=== PATIENT | female | born 1995 | race Caucasian/White ===

== ENCOUNTER 2019-11-22 10:32 | Outpatient (CLI) | payer OTHER, SELFPAY ==
--- NOTE | ~2019-11-22 | XR_ITS ---
[id number] DATE: 11/22/2019 10:49 INDICATION: Left rib pain TECHNIQUE: PA chest. 3 views of the left ribs. COMPARISON: None FINDINGS: Normal heart size. No hilar or mediastinal enlargement. No pulmonary infiltrate or consolid ation, pleural effusion or pulmonary vascular congestion or pneumothorax. No left rib fracture or bone destruction is evident. IMPRESSION: Negative Reviewed, dictated and finalized at Location [facility]. Reviewed, dictated and finalized at location B. IMPRESSION: Negative
== END 2019-11-22 10:33 ==
PROVIDERS: PCP Nurse Practitioner Family; Visit Provider Nurse Practitioner Family
DX: R07.81 Pleurodynia (principal)
CPT/HCPCS: 71101

== ENCOUNTER 2021-03-22 07:04 | Outpatient (CLI) | payer OTHER, SELFPAY ==
[2021-03-27 15:39] LABS: Progesterone 10.2 ng/mL (***)
== END 2021-03-22 07:05 | disposition home or self-care (01) ==
LOC: ANHLAB 07:07
PROVIDERS: PCP Nurse Practitioner Family; Visit Provider Obstetrics & Gynecology
DX: Z30.09 Encounter for other general counseling and advice on contraception (principal)
CPT/HCPCS: 36415; 84144

== ENCOUNTER 2021-05-29 07:18 | Outpatient (CLI) | payer OTHER, SELFPAY ==
[2021-05-29 08:13] LABS: Cholesterol 157 mg/dL (0-200); HDL Direct 37 mg/dL; Triglycerides 109 mg/dL (<150)
[2021-05-29 08:23] LABS: LDL Cholesterol Direct 94 mg/dL
[2021-05-30 16:55] LABS: Glucose 88 mg/dL (65-110)
== END 2021-05-29 07:19 | disposition home or self-care (01) ==
PROVIDERS: PCP Nurse Practitioner Family
DX: R21 Rash and other nonspecific skin eruption (principal)
CPT/HCPCS: 36415; 80061; 82947

== ENCOUNTER 2021-06-03 06:13 | Emergency (ER) | payer OTHER, SELFPAY ==
--- NOTE | ~2021-06-03 | US_ITS ---
EXAMINATION: US venous doppler [facility] DATE: 06/03/2021 08:04 INDICATION: Left lower limb pain and swelling TECHNIQUE: Grayscale ultrasound images without and with compression and Doppler ultrasound images of the left lower extremity veins were obtained. COMPARISON: 11/14/2015 FINDINGS: The visualized portions of left common femoral vein, profunda (deep) femoral vein, femoral vein, popl iteal vein, peroneal veins, posterior tibial veins, gastrocnemius vein and greater saphenous vein out flow are patent. IMPRESSION: 1. No deep venous thrombosis in the left lower limb. Reviewed, dictated and finalized at location A.
[2021-06-03 06:32] VITALS: BP 114/88; PULSE 93; RESP 16; O2SAT 98
--- NOTE | 2021-06-03 07:49 | ED.GENADULT ---
HPI - General Adult General Chief complaint: Extremity Problem,Nontraumatic Stated complaint: Left ankle swelling Time Seen by Provider: 06/03/21 07:03 Source: patient History of Present Illness HPI narrative: Patient is a 26 y/o female complaining of mild left ankle and lower leg swelling today. There is no known alleviating or exacerbating factor. There is no recent injury. She has no chest pain or SOB. Related Data Allergies Allergy/AdvReac Type Severity Reaction Status Date / Time Penicillins Allergy Mild Swelling Verified 06/03/21 06:40 Review of Systems Constitutional: Constitutional: Denies chills, Denies fever(s), Denies headache(s) and Denies weakness Eyes: Eyes: Denies blurry vision ENT: Denies headache(s) and Denies neck pain Cardiovascular: Cardiovascular: Denies chest pain and Denies dyspnea Respiratory: Respiratory: Denies cough and Denies dyspnea Gastrointestinal: Gastrointestinal: Denies abdominal pain, Denies diarrhea, Denies nausea and Denies vomiting Genitourinary: Genitourinary: Denies hematuria and Denies dysuria Musculoskeletal: Musculoskeletal: Denies back pain, Denies neck pain and Reports other (left ankle swelling) Neurologic: Denies headache(s) and Denies weakness PMFSH Social History Social History Gender identity (if verbalized by the patient): Female Exam Const: General: no acute distress and well developed Orientation/consciousness: oriented to person, oriented to place, oriented to time and patient oriented x3 HENMT: Head: normocephalic Ears: external ears normal General nose exam: Normal external nose present Eyes: General: appearance normal, both eyes and all related structures Conjunctivae: conjunctivae normal Neck: Neck: normal visual inspection and full ROM Chest: Chest palpation & inspection: normal inspection of the chest and no tenderness Resp: Effort & Inspection: normal respiratory effort Auscultation: clear to auscultation bilaterally Cardio: Rate: regular rate Rhythm: regular rhythm GI: GI Palp: No abdominal tenderness and Yes Soft to palpation Skin: General skin exam: normal color and turgor normal Neuro: General: oriented to person, oriented to place, oriented to time and patient oriented x3 Cognition (Neuro): normal cognition Extrem: General: normal to inspection, full ROM and no pedal edema Psych: Appearance: grossly normal Mental Status: mental status grossly normal Affect: normal affect Course Vital Signs Vital signs: Vital Signs Pulse Rate 93 09/27/21 06:32 Respiratory Rate 16 06/03/21 06:32 Blood Pressure 114/88 06/03/21 06:32 Pulse Oximetry 98 06/03/21 06:32 Pulse Rate 89 06/03/21 09:32 Respiratory Rate 14 06/03/21 09:32 Blood Pressure 110/82 06/03/21 09:32 Pulse Oximetry 100 06/03/21 09:32 Medical Decision Making Vital Signs Vital Signs: Vital Signs Pulse Rate 93 06/03/21 06:32 Respiratory Rate 16 06/03/21 06:32 Blood Pressure 114/88 06/03/21 06:32 Pulse Oximetry 98 06/03/21 06:32 Pulse Rate 89 06/03/21 09:32 Respiratory Rate 14 06/03/21 09:32 Blood Pressure 110/82 06/03/21 09:32 Pulse Oximetry 100 06/03/21 09:32 Lab Data Result diagrams: 06/03/21 08:29 06/03/21 08:29 Labs: Lab Results 06/03/21 06/03/21 06/03/21 Range/Units 08:29 08:29 08:29 WBC 9.1 (4.5-10.0) K/mm3 RBC 4.51 (4.2-5.4) M/mm3 Hgb 14.6 (12.0-15.0) g/dL Hct 42.4 (37.0-47.0) % MCV 94.0 (80-100) fl MCH 32.4 (26-34) pg MCHC 34.4 (32-36) g/dl RDW 12.0 (11.5-14.5) % Plt Count 314 (150-375) k/mm3 MPV 8.6 (7.4-10.4) fl Immature Gran % (Auto) 1.0 H (0-0.5) % Neut % (Auto) 46.0 (45.5-73.1) % Lymph % (Auto) 45.0 H (18.3-44.2) % [place] % (Auto) 5.7 (2.6-8.5) % Eos % (Auto) 1.5 (0-4.4) % Baso % (Auto) 0.8 (0.2-1.2) % Lymph # (Auto) 4.07 H (0.9-3.2) K/mm3 [place] # (Auto) 0.5 (0
[2021-06-03 07:51] VITALS: BP 123/92; PULSE 83; RESP 12; O2SAT 100
[2021-06-03 08:41] LABS: Basophils Absolute Auto 0.1 K/mm3 (0.0-0.1); Basophils Percent Auto 0.8 % (0.2-1.2); Eosinophils Absolute Auto 0.1 K/mm3 (0-0.3); Eosinophils Percent Auto 1.5 % (0-4.4); Hematocrit 42.4 % (37.0-47.0); Hemoglobin 14.6 g/dL (12.0-15.0); Immature Granulocyte Absolute 0.09 K/mm3 (0.00-0.031); Lymphocytes Absolute Auto 4.07 K/mm3 (0.9-3.2); Mean Corpuscular HGB Conc 34.4 g/dl (32-36); Mean Corpuscular Hemoglobin 32.4 pg (26-34); Mean Platelet Volume 8.6 fl (7.4-10.4); Monocytes Absolute Auto 0.5 K/mm3 (0.1-0.6); Monocytes Percent Auto 5.7 % (2.6-8.5); Neutrophils Absolute Auto 4.2 K/mm3 (1.3-6.7); Platelet Count Result 314 k/mm3 (150-375); Red Blood Count 4.51 M/mm3 (4.2-5.4); White Blood Count 9.1 K/mm3 (4.5-10.0)
[2021-06-03 08:50] LABS: Alanine Aminotransferase 21 U/L (4-35); Albumin Level 4.6 g/dL (3.5-5.1); Alkaline Phosphatase 44 U/L (38-126); Anion Gap 7 mmol/L (8-16); Aspartate Amino Transferase 31 U/L (14-36); Bilirubin,Total 0.7 mg/dL (0.2-1.3); Blood Urea Nitrogen 13 mg/dL (7-17); Calcium 9.7 mg/dL (8.4-10.2); Carbon Dioxide 27 mmol/L (22-30); Chloride 104 mmol/L (98-107); Estimated CRCL calculation 122 ml/min; Estimated Glomerular Filt Rate > 60; Glucose 94 mg/dL (65-110); Sodium 138 mmol/L (137-145)
[2021-06-03 08:59] LABS: NT Pro B Type Natriuretic Pept 22 pg/mL (5-100)
[2021-06-03 09:06] LABS: Add Urine Microscopic? YES; Appearance Urine Clear (Clear); Bacteria Urine Trace /hpf; Bilirubin Urine Negative (Negative); Blood Urine Negative (Negative); Color Urine Straw (Yellow); Glucose Urine UA Negative (Negative); Ketones Urine Negative (Negative); Leukocyte Esterase Ur Negative LEU/UL (Negative); Nitrate Urine Negative (Negative); Protein Urine Negative (Negative); RBC Urine 0-2 /hpf (0-2); Specific Grav Ur 1.009 (1.001-1.035); Squamous Epithelial Cell Urine Occasional /hpf (Few); Urobilinogen Urine Negative mg/dL (<2.0); WBC Urine 0-3 /hpf
[2021-06-03 09:32] VITALS: BP 110/82; PULSE 89; RESP 14; O2SAT 100
== END 2021-06-03 09:37 | disposition home or self-care (01) ==
PROVIDERS: Emergency Provider Emergency Medicine; PCP Nurse Practitioner Family
DX: M25.472 Effusion, left ankle (principal)
CPT/HCPCS: 36415; 80053; 81001; 81025; 83880; 85025; 93971; 99284

== ENCOUNTER 2022-04-28 16:24 | Emergency (ER) | payer OTHER, SELFPAY ==
--- NOTE | ~2022-04-28 | XR_ITS ---
EXAMINATION: XR chest 2V Exam Date/Time: 04/28/2022 17:56 CDT HISTORY: chest pain while smoking Comparison: None available. RESULT: Lines, tubes, and devices: None. Lungs and pleura: Diffuse reticulonodular opacities. Cardiomediastinal silhouette: Stable. Other: No acute osseous or upper abdominal finding. IMPRESSION: Pulmonary opacities may represent bronchiolitis, as can be seen with atypical infection, asthma, aspi ration, and small airways disease.. Reviewed, dictated and finalized at location K. IMPRESSION: Pulmonary opacities may represent bronchiolitis, as can be seen with atypical i nfection, asthma, aspiration, and small airways disease..
[2022-04-28 16:27] VITALS: BP 148/91; PULSE 105; RESP 18; TEMP 36.2; O2SAT 100
--- NOTE | 2022-04-28 16:29 | ECG_ITS ---
Measurements Intervals [facility] Rate: 96 P: 32 GA: 149 QRS: 50 QRSD: 118 T: 5 QT: 318 QTc: 403 Interpretive Statements SINUS RHYTHM MODERATE INTRAVENTRICULAR CONDUCTION DELAY NONSPECIFIC T-WAVE ABNORMALITY LOW-VOLTAGE QRS IN PRECORDIAL LEADS ABNORMAL ECG NO PREVIOUS ECG AVAILABLE FOR COMPARISON Electronically Signed On 04-28-2022 16:40:09 CDT by Rogers Gold M.D.
[2022-04-28 16:46] LABS: Basophils Absolute Auto 0.1 K/mm3 (0.0-0.1); Basophils Percent Auto 0.8 % (0.2-1.2); Eosinophils Absolute Auto 0.2 K/mm3 (0-0.3); Eosinophils Percent Auto 1.5 % (0-4.4); Immature Granulocyte Absolute 0.15 K/mm3 (0.00-0.031); Immature Granulocyte Percent A 1.1 % (0-0.5); Lymphocytes Absolute Auto 3.16 K/mm3 (0.9-3.2); Lymphocytes Percent Auto 24.2 % (18.3-44.2); Mean Corpuscular HGB Conc 33.3 g/dl (32-36); Mean Corpuscular Hemoglobin 32.5 pg (26-34); Mean Corpuscular Volume 97.6 fl (80-100); Mean Platelet Volume 8.6 fl (7.4-10.4); Monocytes Absolute Auto 0.7 K/mm3 (0.1-0.6); Monocytes Percent Auto 5.1 % (2.6-8.5); Neutrophils Absolute Auto 8.8 K/mm3 (1.3-6.7); Neutrophils Percent Auto 67.3 % (45.5-73.1); Platelet Count Result 311 k/mm3 (150-375); Red Blood Count 4.61 M/mm3 (4.2-5.4); Red Cell Distribution Width 12.9 % (11.5-14.5); White Blood Count 13.1 K/mm3 (4.5-10.0)
[2022-04-28 16:56] LABS: Alanine Aminotransferase 22 U/L (6-35); Albumin Level 4.3 g/dL (3.5-5.1); Alkaline Phosphatase 44 U/L (38-126); Anion Gap 10 mmol/L (8-16); Aspartate Amino Transferase 30 U/L (14-36); Bilirubin,Total 0.4 mg/dL (0.2-1.3); Blood Urea Nitrogen 15 mg/dL (7-17); Carbon Dioxide 22 mmol/L (22-30); Chloride 103 mmol/L (98-107); Estimated CRCL calculation 107 ml/min; Estimated Glomerular Filt Rate > 60; Glucose 98 mg/dL (65-110); Lipase 99 U/L (23-300); Partial Thromboplastin Time 29.5 SECONDS (22.3-36.8); Sodium 135 mmol/L (137-145)
[2022-04-28 17:07] LABS: Troponin I < 0.012 ng/mL (0.000-0.034)
[2022-04-28 19:40] VITALS: BP 118/81; PULSE 87; RESP 19; O2SAT 100
[2022-04-28 19:44] VITALS: PULSE 83
--- NOTE | 2022-04-28 19:54 | PC.NURSE ---
Pt reports no chest pain symptoms at this time. Pt rates current chest pain 0/10. No aspirin administered prior to this RN arrival.
[2022-04-28 20:01] VITALS: BP 128/73; PULSE 82; RESP 21; O2SAT 98
[2022-04-28 20:19] LABS: Troponin I < 0.012 ng/mL (0.000-0.034)
--- NOTE | 2022-04-28 20:50 | ED.GENADULT ---
HPI - General Adult General Chief complaint: Chest Pain Stated complaint: chest pain Time Seen by Provider: 04/28/22 19:47 History of Present Illness HPI narrative: Patient is a 27-year-old female who presents ER with chest pain. Is been occurring intermittently over the last week. But more frequently over the last couple days. Will grab her for a minute. No fevers or chills or sweats. No runny nose or sore throat or productive cough. No exertional chest pain. No history of heart disease. Has found no alleviating factors. Related Data Home Medications Medication Instructions Recorded Confirmed aripiprazole 5 mg tablet mg 04/28/22 fluoxetine 20 mg capsule mg 04/28/22 Allergies Allergy/AdvReac Type Severity Reaction Status Date / Time Penicillins Allergy Mild Swelling Verified 04/28/22 19:44 Review of Systems Review of Systems: All systems reviewed & are unremarkable except as noted in HPI and below Constitutional: Constitutional: Denies chills, Denies fatigue and Denies fever(s) ENT: Denies nasal congestion and Denies sore throat Cardiovascular: Cardiovascular: Reports chest pain, Denies rapid heart rate and Denies radiating jaw, neck or arm pain Respiratory: Respiratory: Denies chest congestion, Denies cough and Denies dyspnea Gastrointestinal: Gastrointestinal: Denies abdominal pain, Denies nausea and Denies vomiting Genitourinary: Genitourinary: Denies dysuria and Denies flank pain PMFSH Past Medical History Medical History (Updated 04/28/22 @ 21:38 by Art Arriola MD) Depression Migraine Surgical History Surgical History (Updated 04/28/22 @ 21:38 by Art Arriola MD) No pertinent past surgical history Social History Social History (Updated 04/28/22 @ 21:38 by Art Arriola MD) Smoking status: Light tobacco smoker Gender identity (if verbalized by the patient): Female Exam Narrative: GENERAL: Well-appearing, well-nourished, and in no acute distress. HEAD: Normocephalic, atraumatic. EYES: PERRL and EOMI. CHEST: Clear to auscultation. No respiratory distress. HEART: Regular rate and rhythm. Normal peripheral pulses. ABDOMEN: Soft, nontender, nondistended. EXTREMITIES: Normal range of motion. No edema. SKIN: Warm, dry, no rash. NEURO: Alert and oriented x3. PSYCH: Normal mood and affect. Course Course Emergency Course: Patient resting comfortably. Discharge home. Discussed treatment plan and patient verbalized understanding. Vital Signs Vital signs: Vital Signs Temperature 97.1 F L 04/28/22 16:27 Pulse Rate 105 H 04/28/22 16:27 Respiratory Rate 18 04/28/22 16:27 Blood Pressure 148/91 H 04/28/22 16:27 Pulse Oximetry 100 04/28/22 16:27 Oxygen Delivery Room Air 04/28/22 16:27 Temperature 97.1 F L 04/28/22 16:27 Pulse Rate 80 04/28/22 21:09 Respiratory Rate 20 04/28/22 21:09 Blood Pressure 128/73 04/28/22 21:09 Pulse Oximetry 98 04/28/22 21:09 Oxygen Delivery Room Air 04/28/22 16:27 Medical Decision Making Vital Signs Vital Signs: Vital Signs Temperature 97.1 F L 04/28/22 16:27 Pulse Rate 105 H 04/28/22 16:27 Respiratory Rate 18 04/28/22 16:27 Blood Pressure 148/91 H 04/28/22 16:27 Pulse Oximetry 100 04/28/22 16:27 Oxygen Delivery Room Air 04/28/22 16:27 Temperature 97.1 F L 04/28/22 16:27 Pulse Rate 80 04/28/22 21:09 Respiratory Rate 20 04/28/22 21:09 Blood Pressure 128/73 04/28/22 21:09 Pulse Oximetry 98 04/28/22 21:09 Oxygen Delivery Room Air 04/28/22 16:27 Lab Data Result diagrams: 04/28/22 16:38 04/28/22 16:38 Labs: Lab Results 04/28/22 04/28/22 04/28/22 Range/Units 16:38 16:38 16:38 WBC 13.1 H (4.5-10.0) K/mm3 RBC 4.61 (4.2-5.4) M/mm3 Hgb 15.0 (12.0-15.0) g/dL Hct 45.0 (37.0-47.0) % MCV 97.6 (80-100) fl MCH 32.5 (26-34) pg MCHC 33.3 (32-36) g/dl RDW 12.9 (11.5-14.5) %
[2022-04-28 21:09] VITALS: BP 128/73; PULSE 80; RESP 20; O2SAT 98
[2022-04-28 21:39] VITALS: BP 140/68; PULSE 88; RESP 16; O2SAT 99
[2022-04-28 21:48] LABS: SARS-CoV-2 RNA PCR Negative
== END 2022-04-28 21:42 | disposition home or self-care (01) ==
PROVIDERS: Emergency Medicine; Emergency Provider Emergency Medicine; PCP Nurse Practitioner Family
DX: R07.9 Chest pain, unspecified (principal); Z20.822 Contact with and (suspected) exposure to COVID-19; F32.9 Major depressive disorder, single episode, unspecified
CPT/HCPCS: 36415; 71046; 80053; 83690; 84484; 85025; 85610; 85730; 93005; 99284; C9803; U0003; U0005

== ENCOUNTER 2023-05-18 21:36 | Emergency (ER) | payer OTHER, SELFPAY ==
--- NOTE | 2023-05-18 21:46 | PC.NURSE ---
pt brought to ED by PD for voluntary mental health evaluation. after checking pt in pt states she is fine, does not have any SI/HI thoughts and is not wanting to be checked in. pt reports she made a comment to her brother that got taken out of context. pt ambulated out of ED with steady gait.
== END 2023-05-18 21:46 | disposition left against medical advice (07) ==
LOC: ANHED 22:00
PROVIDERS: PCP Nurse Practitioner Family
DX: Z53.21 Procedure and treatment not carried out due to patient leaving prior to being seen by health care provider (principal)
CPT/HCPCS: 99199

== ENCOUNTER 2023-07-21 09:40 | Emergency (ER) | payer SELFPAY ==
--- NOTE | 2023-07-21 09:41 | ED.URI ---
HPI - URI/Sore Throat General Chief Complaint: Ear Stated Complaint: Right Ear Irritation Time Seen by Provider: 07/21/23 09:50 Source: patient, RN notes reviewed and old records reviewed Mode of arrival: ambulatory Limitations: no limitations History of Present Illness HPI Narrative: 28-year-old female presents to the [facility] with complaints of right ear pain for 3-4 days. Has taken Tylenol for pain. Denies any other symptoms. Denies fevers. Denies using Q-tips, ear buds Denies any drainage Onset (ago): day(s) (3-4) Treatments prior to arrival: acetaminophen Related Data Home Medications Medication Instructions Recorded Confirmed norethindrone 1 mg-ethinyl 1 tablet PO DAILY 07/21/23 07/21/23 estradiol 10 mcg (24)-iron 10 mcg(2) tablet (Lo Loestrin Fe) Allergies Allergy/AdvReac Type Severity Reaction Status Date / Time Penicillins Allergy Mild Swelling Verified 07/21/23 09:41 Review of Systems Review of Systems: All systems reviewed & are unremarkable except as noted in HPI and below Constitutional: Constitutional: Reports no additional constitutional complaints Eyes: Eyes: Reports no additional eye complaints ENT: Reports as per HPI and Reports otalgia Cardiovascular: Cardiovascular: Reports no additional cardiovascular complaints, Denies chest pain and Denies dyspnea Respiratory: Respiratory: Reports no additional respiratory complaints, Denies chest congestion, Denies cough and Denies dyspnea Gastrointestinal: Gastrointestinal: Reports no additional gastrointestinal complaints, Denies abdominal pain, Denies nausea and Denies vomiting Musculoskeletal: Musculoskeletal: Reports no additional musculoskeletal complaints Integumentary/Breasts: Skin/Breast: Reports system reviewed and no additional complaints, except as docu Neurologic: Reports system reviewed and no additional complaints, except as documented Psychiatric: Psychiatric: Reports no additional psychiatric complaints Allergic/Immunologic: Allergic/Immunologic: Reports no additional allergic/immunologic complaints PMFSH Past Medical History Medical History Depression Migraine Surgical History Surgical History No pertinent past surgical history Social History Social History Smoking status: Light tobacco smoker Gender identity (if verbalized by the patient): Female Comments At the time of my signature, I reviewed and agree with the nursing past medical, surgical, social, and family history. There is no relevant family history pertinent to the patient complaint. Exam Const: General: cooperative, healthy appearing, comfortable, no acute distress, well developed, alert and well nourished Nutritional Appearance: well nourished Orientation/consciousness: patient oriented x3 Limitations: no limitations HENMT: Head: normal to inspection Ears: hearing grossly normal bilaterally, external ears normal, TM's normal bilaterally, mastoids normal, no periauricular adenopathy and Abnormal EAC present erythema on the right and EAC tenderness on the right; no otic discharge Face/Nose/Sinus: Normal external nose present, Normal nares present, Normal nasal mucous membranes and turbinates present, normal facial exam and face symmetric Face and sinus: normal facial exam and face symmetric Mouth: Yes Normal oral and palatal mucosa present, Yes lip normal and Yes moist mucous membranes Throat: posterior oropharynx normal, tonsils normal and uvula midline Eyes: General: appearance normal, both eyes and all related structures Alignment and Position: alignment normal Periorbital: periorbital findings normal Pupils: Equal, round and reactive pupils present EOM: EOMs intact bilaterally Neck: Neck: normal visual inspection, full ROM, no lymphadenopathy and no meningeal signs Chest: Tash
[2023-07-21 09:53] VITALS: BP 127/90; PULSE 95; RESP 16; TEMP 36.8; O2SAT 98
== END 2023-07-21 10:06 | disposition home or self-care (01) ==
PROVIDERS: Emergency Provider Nurse Practitioner; PCP Nurse Practitioner Family
DX: H60.391 Other infective otitis externa, right ear (principal); F17.290 Nicotine dependence, other tobacco product, uncomplicated
CPT/HCPCS: 99213; G0463

== ENCOUNTER 2024-04-09 13:04 | Emergency (ER) | payer OTHER, SELFPAY ==
--- NOTE | ~2024-04-09 | CT_ITS ---
EXAMINATION: CT abdomen pelvis w con DATE: 04/09/2024 15:35 INDICATION: Periumbilical pain radiating to lower abdomen TECHNIQUE: Computed tomography (CT) of the abdomen and pelvis was performed with 100 CC Omnipaque 350 intravenous contrast. Automated exposure control and iterative reconstruction technique were employe d. Exam dose: 798.61 mGy-cm total exam DLP. COMPARISON: 07/04/2019 CT abdomen pelvis FINDINGS: The lung bases are clear. Heart size is within normal limits. No pericardial or pleural effusion. The gallbladder appears unremarkable. No bile duct or pancreatic duct dilatation. Hepatic steatosis. No hepatic, splenic, pancreatic, adrenal or renal space occupying mass lesion is d etected. No urinary tract calculus or hydroureteronephrosis. Normal caliber of the abdominal aorta. No intrape ritoneal or retroperitoneal or pelvic mass lesion or adenopathy or ascites. The uterus, adnexal areas and urinary bladder are unremarkable. Normal appendix. Occasional colonic diverticula; no CT evidence of diverticulitis. No bowel obstruction, bowel wall th ickening, pneumatosis or intraperitoneal free air. Fat-containing umbilical hernia. IMPRESSION: Mild colonic diverticulosis; no CT evidence of diverticulitis Normal appendix Reviewed, dictated and finalized at Location [facility]. Reviewed, dictated and finalized at location J.
[2024-04-09 13:08] VITALS: BP 148/95; PULSE 101; RESP 16; TEMP 36.2; O2SAT 99
[2024-04-09 13:20] LABS: Basophils Absolute Auto 0.1 K/mm3 (0.0-0.1); Basophils Percent Auto 0.7 % (0.2-1.2); Eosinophils Absolute Auto 0.2 K/mm3 (0-0.3); Eosinophils Percent Auto 1.2 % (0-4.4); Hematocrit 48.2 % (37.0-47.0); Hemoglobin 16.6 g/dL (12.0-15.0); Immature Granulocyte Absolute 0.12 K/mm3 (0.00-0.031); Immature Granulocyte Percent A 0.8 % (0-0.5); Lymphocytes Absolute Auto 3.77 K/mm3 (0.9-3.2); Lymphocytes Percent Auto 25.2 % (18.3-44.2); Mean Corpuscular HGB Conc 34.4 g/dl (32-36); Mean Corpuscular Volume 92.9 fl (80-100); Monocytes Absolute Auto 0.7 K/mm3 (0.1-0.6); Monocytes Percent Auto 4.5 % (2.6-8.5); Neutrophils Absolute Auto 10.1 K/mm3 (1.3-6.7); Neutrophils Percent Auto 67.6 % (45.5-73.1); Platelet Count Result 363 k/mm3 (150-375); Red Blood Count 5.19 M/mm3 (4.2-5.4); Red Cell Distribution Width 12.6 % (11.5-14.5)
[2024-04-09 13:30] LABS: Alanine Aminotransferase 58 U/L (6-35); Albumin Level 4.6 g/dL (3.5-5.1); Alkaline Phosphatase 44 U/L (38-126); Anion Gap 11 mmol/L (4-12); Aspartate Amino Transferase 37 U/L (14-36); Bilirubin,Total 0.7 mg/dL (0.2-1.3); Blood Urea Nitrogen 9 mg/dL (7-17); Calcium 9.8 mg/dL (8.4-10.2); Carbon Dioxide 19 mmol/L (22-30); Chloride 106 mmol/L (98-107); Estimated CRCL calculation 127 ml/min; Estimated Glomerular Filt Rate > 60; Glucose 104 mg/dL (65-110); Lipase 64 U/L (23-300); Potassium 4.3 mmol/L (3.4-5.0); Sodium 136 mmol/L (137-145)
[2024-04-09 14:11] LABS: BEDSIDEPREGUCG Negative
[2024-04-09 14:21] LABS: Add Urine Microscopic? YES; Appearance Urine Cloudy (Clear); Bacteria Urine 2+ /hpf; Bilirubin Urine Negative (Negative); Blood Urine Negative (Negative); Color Urine Yellow (Yellow); Glucose Urine UA Negative (Negative); Ketones Urine Negative (Negative); Leukocyte Esterase Ur 1+ LEU/UL (Negative); Need Manual Microscopic Reviewed; Nitrate Urine Negative (Negative); Protein Urine Negative (Negative); RBC Urine 0-2 /hpf (0-2); Specific Grav Ur 1.022 (1.001-1.035); Squamous Epithelial Cell Urine Few /hpf (Few); WBC Urine 21-50 /hpf (0-3); pH Urine 5.5 (5.0-9.0)
--- NOTE | 2024-04-09 14:49 | ED.GENADULT ---
HPI - General Adult General Chief complaint: Abdominal Pain Stated complaint: abd pain Time Seen by Provider: 04/09/24 13:58 History of Present Illness HPI narrative: Isabela Palma is a 29 y/o female who presents with reports of waking up with mid abdominal pain at 0900 today - she took pepto and went back to bed. She woke back up at 1200 and feels worse with increased mid to lower abdominal pain. Denies N/V Reports last BM was two days ago which she states is normal for her NO recent fevers LMP last week PMHx of Diverticulitis - no previous abdominal surgeries Related Data Home Medications Medication Instructions Recorded Confirmed norethindrone 1 mg-ethinyl 1 tablet PO DAILY 07/21/23 07/21/23 estradiol 10 mcg (24)-iron 10 mcg(2) tablet (Lo Loestrin Fe) Allergies Allergy/AdvReac Type Severity Reaction Status Date / Time Penicillins Allergy Mild Swelling Verified 07/21/23 09:41 Review of Systems Review of Systems: All systems reviewed & are unremarkable except as noted in HPI and below PMFSH Past Medical History Medical History Depression Migraine Surgical History Surgical History No pertinent past surgical history Social History Social History Smoking status: Light tobacco smoker Gender identity (if verbalized by the patient): Female Exam Narrative: GENERAL: well-nourished, and in no acute distress. HEAD: Normocephalic, atraumatic. EYES: PERRLA and EOMI. ENT: Nares clear, no rhinorrhea or epistaxis. Mucous membranes moist. Oropharynx without tonsillar hypertrophy exudate or other lesions. NECK: Supple. No adenopathy or masses. No carotid bruits or JVD CHEST: Clear to auscultation. No respiratory distress. No wheezes rales or rhonchi HEART: Regular rate and rhythm. No murmur heard. Normal peripheral pulses. ABDOMEN: Soft nondistended, normal active bowel sounds. + abdominal tenderness to the left lower to the mid abdomen EXTREMITIES: Normal range of motion. No edema. SKIN: Warm, dry, no rash. NEURO: No focal deficits. Alert and oriented x3. PSYCH: Normal mood and affect. Course Vital Signs Vital signs: Vital Signs Temperature 36.2 C L 04/09/24 13:08 Pulse Rate 101 H 04/09/24 13:08 Respiratory Rate 16 04/09/24 13:08 Blood Pressure 148/95 H 04/09/24 13:08 Pulse Oximetry 99 04/09/24 13:08 Temperature 36.2 C L 04/09/24 13:08 Pulse Rate 101 H 04/09/24 13:08 Respiratory Rate 16 04/09/24 13:08 Blood Pressure 148/95 H 04/09/24 13:08 Pulse Oximetry 99 04/09/24 13:08 Medical Decision Making MDM Narrative Medical decision making narrative: 29 y/o with mid to left lower quadrant abdominal pain that started at 0900 today and has become worse no N/V/D No fever chills Plan to check labs/ CT abdomen pelvis CBC- elevated WBC 15, hgb 16.6, hct 48.2 CMP- NA 136, Bicarb 19, Creat 0.60, AST 37, ALT 58 Lipase - 64 UA - cloudy, +1 leuks, wbc 21-50, bacteria 2+ CT - Mild colonic diverticulosis; no CT evidence of diverticulitis Normal appendix Patient re-evaluated at 1615 and reports feeling much better abdominal pain is essentially gone - updated on plan to start treatment for UTI Close follow up with PCP Strict return precautions provided Medical Records Medical records reviewed: Yes I reviewed the external patient's medical records. Vital Signs Vital Signs: Vital Signs Temperature 36.2 C L 04/09/24 13:08 Pulse Rate 101 H 04/09/24 13:08 Respiratory Rate 16 04/09/24 13:08 Blood Pressure 148/95 H 04/09/24 13:08 Pulse Oximetry 99 04/09/24 13:08 Temperature 36.2 C L 04/09/24 13:08 Pulse Rate 101 H 04/09/24 13:08 Respiratory Rate 16 04/09/24 13:08 Blood Pressure 148/95 H 04/09/24 13:08 Pulse Oximetry 99 04/09/24 13:08 Vitals reviewed by
[2024-04-09 15:00] VITALS: BP 145/75; PULSE 75; RESP 17; TEMP 36.7; O2SAT 100
[2024-04-09] MEDS: KETOROLAC 30 MG/ML VIAL (*BKC) IV PUSH (15:05)
[2024-04-09] MEDS: FAMOTIDINE 20 MG/2 ML VIAL IV PUSH (15:06)
[2024-04-09] MEDS: SODIUM CHLORIDE 0.9% IV 1,000 ML 999 ML IV CONT (15:06)
[2024-04-09] MEDS: ONDANSETRON INJ 4 MG/2 ML VIAL IV PUSH (15:06)
[2024-04-09] MEDS: NITROFURANTOIN MONOHYD MACROCR 100 MG CAP PO (16:53)
[2024-04-09 17:00] VITALS: BP 137/62; PULSE 87; RESP 17; TEMP 37.2; O2SAT 100
== END 2024-04-09 17:02 | disposition home or self-care (01) ==
PROVIDERS: Emergency Medicine; Emergency Provider Nurse Practitioner Family
DX: N30.00 Acute cystitis without hematuria (principal); F17.200 Nicotine dependence, unspecified, uncomplicated
CPT/HCPCS: 36415; 74177; 80053; 81001; 81025; 83690; 85025; 87086; 87088; 96361; 96374; 96375; 99284; A9270; J1885; J2405; J7030; Q9967

== ENCOUNTER 2024-06-27 11:52 | Outpatient (CLI) | payer OTHER, SELFPAY ==
--- NOTE | ~2024-06-27 | XR_ITS ---
AP and lateral views of the left tibia/fibula Clinical History: Skin discoloration Findings: No acute fracture or dislocation is seen. Osseous alignment is anatomic. Joint spaces are p reserved without significant erosive or degenerative change. Soft tissues are unremarkable. Impression: Unremarkable left tib-fib radiographs. Reviewed, dictated and finalized at location . Impression: Unremarkable left tib-fib radiographs.
--- NOTE | ~2024-06-27 | XR_ITS ---
Left ankle Technique: AP and lateral views were obtained. Clinical History: Skin discoloration Findings: No acute fracture or dislocation is seen. Osseous alignment is anatomic. Ankle mortise and other visualized joint spaces are preserved. Soft tissues are otherwise unremarkable. Impression: Unremarkable left ankle. Reviewed, dictated and finalized at location . Impression: Unremarkable left ankle.
== END 2024-06-27 11:53 | disposition home or self-care (01) ==
PROVIDERS: Visit Provider Nurse Practitioner Family
DX: R23.8 Other skin changes (principal)
CPT/HCPCS: 73590; 73600

== ENCOUNTER 2024-08-24 15:59 | Outpatient (CLI) | payer OTHER, SELFPAY ==
--- NOTE | ~2024-08-24 | US_ITS ---
EXAMINATION: US soft tissue LE LT DATE: 08/24/2024 16:52 INDICATION: Left lower limb localized swelling. TECHNIQUE: Multiple grayscale and Doppler ultrasound images of the left lower limb were obtained. COMPARISON: None FINDINGS: In the left thigh, the greater saphenous vein measures 8 mm in diameter. No thrombus. IMPRESSION: 1. No abnormal mass in the patient's area of concern in left thigh. Reviewed, dictated and finalized at location A. REMOVER
== END 2024-08-24 16:00 | disposition home or self-care (01) ==
PROVIDERS: PCP Nurse Practitioner Family; Visit Provider Nurse Practitioner Family
DX: R22.42 Localized swelling, mass and lump, left lower limb (principal)
CPT/HCPCS: 76882

== ENCOUNTER 2024-09-09 14:02 | Outpatient (CLI) | payer OTHER, SELFPAY ==
--- NOTE | ~2024-09-09 | US_ITS ---
EXAMINATION: US arterial ankle brachial ind DATE: 09/09/2024 14:46 INDICATION: Discoloration of skin. TECHNIQUE: Segmental pressures and plethysmographic and Doppler waveforms of the brachial and lower e xtremity arteries were obtained. COMPARISON: None. FINDINGS: Right and left brachial artery pressures of 133 mm Hg and 140 mm Hg, respectively, are concordant (no rmal difference <= 30 mmHg). The right ankle-brachial index (GRACIELA) is 1.18 (normal >= 0.9-1.0). The right great toe-brachial index (TBI) is 0.42 (normal >= 0.65). Arterial Doppler demonstrate brisk systolic upstrokes at both right p osterior tibial and dorsalis pedis arteries. The left GRACIELA is 0.94. The left TBI is 0.74. Arterial Doppler waveforms demonstrate brisk systolic ups trokes at both left posterior tibial and dorsalis pedis arteries. IMPRESSION: 1. Mild arterial occlusive disease to the bilateral lower limbs with mildly decreased right TBI and m ildly decreased left GRACIELA. Reviewed, dictated and finalized at location B. 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 Mild arterial occlusive disease to the bilateral lower limbs with mildly dec reased right TBI and mildly decreased left GRACIELA.
== END 2024-09-09 14:03 | disposition home or self-care (01) ==
PROVIDERS: PCP Nurse Practitioner Family; Visit Provider Nurse Practitioner Family
DX: I77.1 Stricture of artery (principal); R23.8 Other skin changes
CPT/HCPCS: 93922

== ENCOUNTER 2025-01-09 13:21 | Emergency (ER) | payer OTHER, SELFPAY ==
--- NOTE | ~2025-01-09 | XR_ITS ---
XR foot RT min 3V Ordering provider: Marilyn Cleveland APRN History: . pain . Comparison: None. FINDINGS: BONES: No acute fracture or dislocation. JOINT SPACES: Normal. No tarsal coalition. SOFT TISSUES: Normal. Calcaneal spur. IMPRESSION: No acute osseous abnormality of the right foot. Reviewed, dictated and finalized at location A.
[2025-01-09 13:22] VITALS: BP 147/76; PULSE 100; RESP 20; TEMP 37; O2SAT 98
--- NOTE | 2025-01-09 13:38 | ED.EXTPRO ---
HPI - Extremity Problem General Chief complaint: Extremity Problem,Nontraumatic Stated complaint: Right Foot Pain Source: patient Mode of arrival: ambulatory Limitations: no limitations History of Present Illness HPI Narrative: Patient is a 29 year old female that presents to the clinic with complaints of right foot pain that has been persistent for 2 weeks. She states that she fell going up the stairs. She has been taking Tyelnol for pain, with minimal relief. Denies any numbness, tingling, or radiation of pain. Related Data Home Medications ?Medication ?Instructions ?Recorded ?Confirmed ?Last Taken ?Type norethindrone 1 mg-ethinyl 1 tablet PO DAILY 07/21/23 07/21/23 Unknown History estradiol 10 mcg (24)-iron 10 mcg(2) tablet (Lo Loestrin Fe) aripiprazole 10 mg tablet mg 01/09/25 Unknown History fluoxetine 20 mg tablet mg 01/09/25 Unknown History Allergies Allergy/AdvReac Type Severity Reaction Status Date / Time Penicillins Allergy Mild Swelling Verified 01/09/25 13:27 Review of Systems Review of Systems: CONSTITUTIONAL: Denies body aches, fever, chillsEYES: Denies visual changes ENT: Denies rhinorrhea, congestion CARDIOVASCULAR: Denies chest pain, palpitations, or edema. RESPIRATORY: Denies cough or dyspnea. SKIN: Denies rash, itching, or wounds. MUSCULOSKELETAL: Reports pain to ball of the right foot. NEUROLOGIC: Denies headache, numbness, tingling, or weakness. All systems reviewed & are unremarkable except as noted in HPI and below PMFSH Past Medical History Medical History Migraine Depression Surgical History Surgical History No pertinent past surgical history Social History Social History Smoking status: Light tobacco smoker Gender identity (if verbalized by the patient): Female Comments At time of signature, I have reviewed and agree with nursing past medical, surgical, social and family history unless otherwise noted. Please see nursing chart for further information. There is no relevant family history pertinent to the presenting complaint. Exam Narrative: GENERAL: Well-appearing, well-nourished, and in no acute distress. HEAD: Normocephalic, atraumatic. NECK: Supple. CHEST: Speaks in full sentences. No respiratory distress. HEART: Regular rate and rhythm. Normal and equal peripheral pulses. EXTREMITIES: Right foot has normal strength and sensation, decreased range of motion with flexion/extension and endorses pain with movement. Edema noted. No ecchymosis, Point tenderness to plantar aspect of right foot . No open wounds, skin tenting, or obvious deformity; alignment normal, pulse palpable and equal bilaterally, skin warm, dry, pink. Capillary refill less than 3 seconds. Distal sensation intact. SKIN: Warm, dry, no rash. NEURO: Alert and oriented x3. PSYCH: Normal mood and affect Course Course Level of Care: Express Care Visit Vital Signs Vital signs: Vital Signs Temperature 98.6 F 01/09/25 13:22 Pulse Rate 100 01/09/25 13:22 Respiratory Rate 20 01/09/25 13:22 Blood Pressure 147/76 H 01/09/25 13:22 Pulse Oximetry 98 01/09/25 13:22 Oxygen Delivery Room Air 01/09/25 13:22 Temperature 98.6 F 01/09/25 13:22 Pulse Rate 100 01/09/25 13:22 Respiratory Rate 20 01/09/25 13:22 Blood Pressure 147/76 H 01/09/25 13:22 Pulse Oximetry 98 01/09/25 13:22 Oxygen Delivery Room Air 01/09/25 13:22 Reviewed. MDM - Extremity (Nontraumatic) MDM Narrative Medical decision making narrative: Discussed physical exam findings and xray. Advised supportive measures and signs/symptoms to go to the ER. Pt is appropriate for outpatient treatment and follow up. Imaging Data Radiologist's impression: agree with radiologist. ITS Impressions Foot X-Ray 01/09/25 13:46 IMPRESSION: No acute osseous abnormality of the right foot. Critical Care Time Critical Care Time Critical Care Time: No Discharge Plan Discharge Clinical Impression: Acute foot pain Patient Disposition: Home Condition: Stable Additional Instructions: Rest. Avoid running or excessive walking or anything that worsens the symptoms Tylenol every 8 hours as needed You can alternate with ibuprofen Alternate ice/heat to the site. Lidocaine or salon pas pain patch or use pain cream like icy/hot or biofreeze. Follow up with your primary care provider as needed in 1 week Go to the ER for worsening symptoms or concerns Patient Language: Persian Prescriptions: No Action fluoxetine 20 mg tablet aripiprazole 10 mg tablet Lo Loestrin Fe 1 mg-10 mcg (24)/10 mcg (2) tablet 1 tablet PO DAILY Follow-up/Referrals: Christopher,Dayana Velasco APRN [Primary Care Provider] - Stand Alone Forms: Work/School Release IP
== END 2025-01-09 14:00 | disposition home or self-care (01) ==
PROVIDERS: PCP Nurse Practitioner Family
DX: M79.671 Pain in right foot (principal)
CPT/HCPCS: 73630; 99213; G0463

== ENCOUNTER 2025-02-13 10:58 | Emergency (ER) | payer OTHER, SELFPAY ==
--- NOTE | 2025-02-13 11:01 | ED_ITS ---
HPI - Eye Problem General Chief complaint: Eye Problems Stated complaint: blurry vision Time Seen by Provider: 02/13/25 11:03 Source: patient, RN notes reviewed and old records reviewed Mode of arrival: ambulatory Limitations: no limitations History of Present Illness HPI Narrative: 30-year-old female presents to the [facility] with concerns of feeling very hot at work, developed blurred vision after drinking a monster coffee, energy drink. Patient reports that the symptoms have resolved. Patient reports slight headache right temporal area, rate to a 10. No treatment prior to arrival. No neuro deficits are noted. Facial symmetry is noted. Patient states that work told her to come and ?get checked out. ? Patient has a history of high blood pressure. reports concerns for her blood pressure. Related Data Home Medications ?Medication ?Instructions ?Recorded ?Confirmed ?Last Taken ?Type norethindrone 1 mg-ethinyl 1 tablet PO DAILY 07/21/23 07/21/23 Unknown History estradiol 10 mcg (24)-iron 10 mcg(2) tablet (Lo Loestrin Fe) aripiprazole 10 mg tablet mg 01/09/25 Unknown History fluoxetine 20 mg tablet mg 01/09/25 Unknown History losartan 50 mg tablet mg 02/13/25 Unknown History Allergies Allergy/AdvReac Type Severity Reaction Status Date / Time Penicillins Allergy Mild Swelling Verified 02/13/25 11:09 Review of Systems Review of Systems: All systems reviewed & are unremarkable except as noted in HPI and below Constitutional: Constitutional: Reports no additional constitutional complaints Eyes: Eyes: Reports as per HPI ENT: Reports system reviewed and no additional complaints, except as documented Cardiovascular: Cardiovascular: Reports no additional cardiovascular complaints, Denies chest pain and Denies dyspnea Respiratory: Respiratory: Reports no additional respiratory complaints, Denies chest congestion, Denies cough and Denies dyspnea Musculoskeletal: Musculoskeletal: Reports no additional musculoskeletal complaints Integumentary/Breasts: Skin/Breast: Reports system reviewed and no additional complaints, except as docu PMFSH Past Medical History Medical History Migraine Depression Surgical History Surgical History No pertinent past surgical history Social History Social History Smoking status: Light tobacco smoker Gender identity (if verbalized by the patient): Female Comments At the time of my signature, I reviewed and agree with the nursing past medical, surgical, social, and family history. There is no relevant family history pertinent to the patient complaint. Exam Const: General: cooperative, healthy appearing, comfortable, no acute distress, well developed, alert and well nourished Nutritional Appearance: well nourished Orientation/consciousness: patient oriented x3 Limitations: no limitations HENMT: Head: normal to inspection Ears: hearing grossly normal bilaterally, external ears normal, TM's normal bilaterally, EAC's normal, mastoids normal and no periauricular adenopathy Face/Nose/Sinus: Normal external nose present, Normal nares present, Normal nasal mucous membranes and turbinates present, No ecchymosis and No erythema Face and sinus: normal facial exam, sinuses nontender, face symmetric and no ecchymosis Mouth: Yes Normal oral and palatal mucosa present, Yes lip normal, Yes tongue normal and Yes moist mucous membranes Throat: posterior oropharynx normal, uvula midline and no uvular edema Eyes: General: appearance normal, both eyes and all related structures Alignment and Position: alignment normal Neck: Neck: normal visual inspection, full ROM, no lymphadenopathy and no meningeal signs Chest: Chest palpation & inspection: normal inspection of the chest Resp: Effort & Inspection: normal respiratory effort and able to speak in complete sentences Auscultation: clear to auscultation bilaterally, no crackles, no rales, no rhonchi and no wheezes Cardio: Rate: regular rate Skin: General skin exam: normal color and no rashes or lesions noted Neuro: General: patient oriented x3, gait normal, moves all extremities, no meningeal signs and no focal motor deficits Cranial nerves: Yes Equal, round and reactive pupils present, Yes Bilaterally intact EOM present, Yes Nystagmus not present, Yes facial symmetry, Yes Midline tongue present, Yes Ability to bilaterally rotate head present and Yes Ability to bilaterally elevate shoulders present Cognition (Neuro): normal cognition Speech: normal speech Gait exam (Neuro): Normal gait present Motor exam (neuro): Pronator motor function not present, No tremor noted and Motor abnormalities not present Extrem: General: normal to inspection, full ROM, capillary refill normal and normal gait Psych: Appearance: grossly normal and well kempt Mental Status: mental status grossly normal Speech and movement: Normal speech and movement present and Clear speech present Affect: normal affect Attitude: cooperative Course Course Level of Care: Express Care Visit Vital Signs Vital signs: Vital Signs Temperature 97.4 F L 02/13/25 11:04 Pulse Rate 89 02/13/25 11:04 Respiratory Rate 16 02/13/25 11:04 Blood Pressure 143/99 H 02/13/25 11:04 Pulse Oximetry 99 02/13/25 11:04 Oxygen Delivery Room Air 02/13/25 11:04 Temperature 97.4 F L 02/13/25 11:04 Pulse Rate 89 02/13/25 11:04 Respiratory Rate 16 02/13/25 11:04 Blood Pressure 143/99 H 02/13/25 11:04 Pulse Oximetry 99 02/13/25 11:04 Oxygen Delivery Room Air 02/13/25 11:04 Reviewed MDM - Eye Problem MDM Narrative Medical decision making narrative: Patient sitting in exam room. Patient is nontoxic vitals are stable. Patient reports becoming hot and flushed and then blurry vision after drinking a energy drink. Symptoms have resolved No acute findings noted on exam. Neurologically intact. Patient appropriate for outpatient treatment and follow-up Discharge instructions reviewed with patient, as well as provided in writing per nursing staff. The instructions also include specific and strict return/GO TO THE ER as well as f/u information. All questions have been answered, and the patient deny any further questions with discharge and discharge plan. Some parts of this dictation were generated by voice recognition software and may contain typographical and/or grammatical inaccuracies. Differential Diagnosis Differential diagnosis: Likely other Critical Care Time Critical Care Time Critical Care Time: No Discharge Plan Discharge Clinical Impression: Physically well but worried, History of high blood pressure Patient Disposition: Home Condition: Stable Instructions: Antibiotic Form, Chronic Hypertension (ED) Additional Instructions: Today your blood pressure was 143/99. Stay hydrated. Drink plenty water, Gatorade, Pedialyte. Avoid energy drinks especially if you take blood pressure medication. Follow-up with primary care provider this week If your symptoms return, get worse or do not resolve go directly to the emergency room Patient Language: Greek Prescriptions: No Action fluoxetine 20 mg tablet aripiprazole 10 mg tablet Lo Loestrin Fe 1 mg-10 mcg (24)/10 mcg (2) tablet 1 tablet PO DAILY losartan 50 mg tablet Follow-up/Referrals: Deya,ISABELA Lazo [Primary Care Provider] - 3 Days (express care follow up) Stand Alone Forms: Work/School Release IP Time of Disposition: 11:11
[2025-02-13 11:04] VITALS: BP 143/99; PULSE 89; RESP 16; TEMP 36.3; O2SAT 99
== END 2025-02-13 11:15 | disposition home or self-care (01) ==
PROVIDERS: Emergency Provider Nurse Practitioner; PCP Nurse Practitioner Family
DX: Z71.1 Person with feared health complaint in whom no diagnosis is made (principal); I10 Essential (primary) hypertension
CPT/HCPCS: 99212; G0463

== ENCOUNTER 2025-04-25 13:00 | Emergency (ER) | payer OTHER, SELFPAY ==
--- NOTE | ~2025-04-25 | XR_ITS ---
EXAM/PROCEDURE: XR chest 2V - 04/25/2025 14:00 CDT HISTORY: 30 years old Female with chest tightness LT UPPER X 2 DAYS HX HTN TECHNIQUE: Two view(s) of the chest. COMPARISON: None available. FINDINGS: LUNGS/ PLEURA: No focal consolidation. Mild perihilar bronchial wall thickening. HEART/ MEDIASTINUM: Heart appears normal in size. BONES: No acute osseous abnormality. OTHER: Visualized upper abdomen is unremarkable. IMPRESSION: No focal consolidation. Mild perihilar bronchial wall thickening, findings suggestive of respiratory bronchiolitis. Reviewed, dictated and finalized at location A. IMPRESSION: No focal consolidation. Mild perihilar bronchial wall thickening, findings sugg estive of respiratory bronchiolitis.
--- NOTE | 2025-04-25 13:02 | ECG_ITS ---
Test Date: 2025-04-25 13:07:42 Measurements Intervals [place] Rate: 92 P: 24 DC: 165 QRS: 38 QRSD: 68 T: -6 QT: 331 QTc: 410 Interpretive Statements SINUS RHYTHM LOW QRS VOLTAGE IN PRECORDIAL LEADS BORDERLINE ST-T WAVE ABNORMALITY- ANTEROLAT/INF LEADS BASELINE ARTIFACT- I, II, III, AVR, AVL ,AVF BORDERLINE ECG No previous ECG available for comparison Electronically Signed On 04-25-2025 13:10:50 CDT by Jr García D.O.
[2025-04-25 13:09] VITALS: BP 131/91; PULSE 82; RESP 16; TEMP 36.5; O2SAT 97
--- OUTSIDE RECORDS SUMMARY | 2025-04-25 13:13 | XMS_ITS | Clinical Summary ---
Author Organization [facility] Address [address] [place] [id number] Care Team Providers Care Brand Executive Name Role Phone Brenda Strong EXPERIMENTAL ASSEMBLER Primary Care Provider [phone] Social History Tobacco Use Types Packs/Day Years Used Date Smoking Tobacco: Never Assessed Comments Unknown Sex and Gender Information Value Date Recorded Sex Assigned at Not on file Legal Sex Female 6:10 PM CDT Gender Identity Not on file Sexual Orientation Not on file Plan of Treatment Health Maintenance Due Date Last Done Comments Cervical Cancer Screening Pap Smear (Age 30 to 64) Every 3 Years 1993 Annual Physical 01/26/1996 Hepatitis C 2011 DTaP, Tdap and Td Vaccines (1 - Tdap) 01/26/2012 05/01/1994, 1993, 1993, Additional history exists HPV Vaccines (1 - 3-dose SCDM series) 01/26/2020 Cervical Cancer Screening Pap with HPV Testing (Age 30 to 64) Every 5 Years 2023 Cervical Cancer Screening with HPV 2023 COVID-19 Vaccine ( season) 2024 05/24/2021, 05/03/2021 Hepatitis B Vaccines Completed 1993, 1993, 1993 Meningococcal B Vaccine Aged Out No l onger eligible based on patient's age to complete this topic Meningococcal Vaccine Aged Out No apoorva coretta eligible based on patient's age to complete this topic Pneumococcal Vaccine: Pediatrics (0 to 5 Years) and At-Risk Patients (6 to 49 Years) Aged Out No longer eligible based on patient's age to complete this topic RSV Immunizations Under 20 Months Aged Out No longer eligible based on patient's age to complete this topic Insurance [employer] Care Teams Brand Executive Relationship Specialty Start Date End Date Brenda Strong FNP PCP - General NURSE PRACTITIONER 01/30/23
--- OUTSIDE RECORDS SUMMARY | 2025-04-25 13:13 | XMS_ITS | Patient Health Record ---
Author Organization [facility] Address [address] [place] [address] Care Team Providers Care Registered Physical Therapist Name Role Phone Praveen Lynn Unavailable [phone] Reason For Referral No Information Medications Medication SIG (Take, Route, Frequency, Duration) Notes Start Date End Date Status Eszopiclone 2 MG Tablet Oral 11/27/2022 Active Doxycycline Hyclate 100 MG Tablet Oral 11/27/2022 Active FLUoxetine HCl 40 MG Capsule Oral 11/27/2022 Active Sertraline HCl 50 MG Tablet Oral 11/27/2022 Active Letrozole 2.5 MG Tablet Oral 11/27/2022 Active FLUoxetine HCl 10 MG Capsule Oral 11/27/2022 Active Amphetamine-Dextroamph et ER 15 MG Capsule Extended Release 24 Hour Oral 11/27/2022 Active Lunesta 2 MG Tablet Oral 11/27/2022 Active ARIPiprazole 15 MG Tablet Oral 11/27/2022 Active Adderall XR 15 MG Capsule Extended Release 24 Hour Oral 11/27/2022 Active Lo Loestrin Fe 1 mg-10 mcg(24) /10 mcg (2) Tablet Oral *Pick strength-form from [employer] for eRX* 11/27/2022 Active Immunizations Vaccine Route Administration Date Status Comme nts Pfizer Biontech Covid-19 Vac cine 2nd dose Unknown 05/03/2021 Administered Pfizer Biontech Covid-19 Vac cine 2nd dose Unknown 05/24/2021 Administered Social History Social History Additional Details Category Social Info Options Details Migrated Social History Migrated Social History Alcohol Intake: Occasional 02/10/2022,Tobacco Years: Current every day smoker 02/10/2022 Plan Of Treatment No Information Insurance Providers Payer Name Payer Address Payer Phone Subscriber Number Group Number Insured Name Patient Relationship to Insured Coverage Start Date Coverage End Date r Ppo [address] [address] [place] [address] [id number] SILVIA GATES Self - patient is the insured
--- OUTSIDE RECORDS SUMMARY | 2025-04-25 13:13 | XMS_ITS | Clinical Summary ---
Author Organization [facility] [place] [facility] Address [address] [place] [address] Care Team Providers Care Stone Spreader Operator Name Role Phone Violet Falk NP Primary Care Provider [phone] Allergies Active Allergy Reactions Criticality Noted Date Comments Penicillins Other (See comments) 12/14/2009 Medications acetaminophen (TylenoL) 325 mg tablet Take 1 tablet (325 mg total) by mouth every 4 (four) hours as needed Active ARIPiprazole (ABILIFY) 10 mg tablet Take 1 tablet (10 mg total) by mouth daily Active drospirenone, contraceptive, (SLYND) tablet tabletIndications: Encounter for initial prescription of contraceptive pills Take 1 each (4 mg total) by mouth daily 28 each 02/09/20 25 Active ergocalciferol (VITAMIN D) 50,000 unit capsuleIndications :Vitamin D deficiency Take 1 capsule (50,000 Units total) by mouth once a week 12 capsule 4 03/09/20 25 026 Active atorvastatin (LIPITOR) 10 mg tabletIndications: Hyperlipidemia, unspecified hyperlipidemia type Take 1 tablet (10 mg total) by mouth daily 90 tablet 1 03/14/20 25 026 Active losartan (COZAAR) 50 mg tabletIndications: Hypertension, essential TAKE 1 TABLET(50 MG) BY MOUTH DAILY 30 tablet 1 04/04/20 25 Active FLUoxetine (PROzac) 40 mg capsuleIndications :Anxiety TAKE 1 CAPSULE(40 MG) BY MOUTH DAILY 30 capsule 1 04/25/20 25 Active FLUoxetine (PROzac) 40 mg capsuleIndications :Anxiety Take 1 capsule (40 mg total) by mouth daily 30 capsule 1 02/09/20 25 025 Discontinued losartan (COZAAR) 50 mg tabletIndications: Hypertension, essential Take 1 tablet (50 mg total) by mouth daily 30 tablet 1 02/09/20 25 025 Discontinued Active Problems Problem Noted Date Diagnosed Date BMI 36.0-36.9,adult 02/08/2025 Assessment & Plan (03/09/2025 7:16 AM CDT): Discussed the patient's BMI. The BMI is above average. BMI management plan is completed. BMI Follow-up includes: nutrition counseling, exercise counseling and education provided. Assessment & Plan (02/08/2025 1:40 PM CDT): Discussed the patients BMI: The BMI is above average BMI management is complete. BMI follow-up includes: Nutrition Counseling and education provided Encounters Date Type Department Care Team Description 03/14/[address] [address] Violet Falk NP 03/09/2025 7:00 AM CDT Office Visit [address] [address] Violet Falk NP Vitamin D deficiency (Primary Dx); BMI 36.0-36.9,adult; Obesity (BMI 30-39.9); Mixed hyperlipidemia 02/20/[address] [address] Violet Falk NP 02/09/[address] [place] [phone] Violet Falk NP Additional Services Or Orders 02/08/2025 1:30 PM CDT Office Visit [address] [address] Violet Falk NP Hypertension, essential (Primary Dx); BMI 37.0-37.9, adult; Obesity (BMI 30-39.9); Bruising; Discoloration of skin; Encounter for initial prescription of contraceptive pills; Screening for cholesterol level; Screening for thyroid disorder; Vitamin D deficiency; Anxiety from Last 3 Months Immunizations Immunization Administration Dates Next Due DTP / HiB 05/01/1994, 3,1993,03/14 Hep B, Adolescent or Pediatric 1993,1992,1993 Influenza, Trivalent, Preser vative Free, Intramuscular 06/22/2024 MMR 01/30/1994 OPV 05/01/1994, 4,1993,03/14 Surgical History Surgery Date Site/Laterality Comments ELBOW SURGERY Medical History Medical History Date Comments Hyperlipidemia Depression Anxiety Family History Medical History Relation Name Comments PTSD Brother No Known Problems Daughter Hyperlipidemia Father Hypertension Father Coronary artery disease Mother Diabetes type II Mother Relation Name Status Comments Brother Alive Daughter Father Alive Mother Social History Tobacco Use Types Packs/Day Years Used Date Smoking Tobacco: Every Day Cigarettes Tobacco Cessation:Ready to Q uit: Yes; Counseling Given: Not Answered AUDIT-C Answer Date Recorded Q1: How often do you have a drink containing alcohol? Never 03/09/2025 Q2: How many drinks containi ng alcohol do you have on a typical day when you are drinking? Patient does not drink Q3: How often do you have si x or more drinks on one occasion? 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 Gender Identity Not on file Sexual Orientation Not on file Obstetrics History Last Filed Vital Signs Vital Sign Reading Time Taken Comments Blood Pressure 124/86 03/09/2025 7:07 AM CDT Pulse 85 03/09/2025 7:07 AM CDT Temperature 36.9 C (98.5 F) 03/09/2025 7:07 AM CDT Respiratory Rate - - Oxygen Saturation 97% 03/09/2025 7:07 AM CDT Inhaled Oxygen Concentration - - Weight 97.5 kg (215 lb) 03/09/2025 7:07 AM CDT Height 162.6 cm (5' 4) 03/09/2025 7:07 AM CDT Body Mass Index 36.9 03/09/2025 7:07 AM CDT Plan of Treatment Health Maintenance Due Date Last Done Comments Cervical Cancer Screening 1993 Hepatitis C Screening 1993 DTaP/Tdap/Td Vaccine (5 - Tdap) 01/26/2004 05/01/1994, 1993, 1993, Additional history exists Varicella Vaccines (1 of 2 - 13+ 2-dose series) 2006 Regular Well Visit/Exam 18-64 2011 Pneumococcal vaccine <65 (1 of 2 - PCV) 01/26/2012 HPV Vaccines (1 - 3-dose SCD M series) 01/26/2020 Covid-19 Vaccine (3 - 2023-2 5 season) 2024 05/24/2021, 05/03/2021 Influenza Vaccine (#1) 2025 06/22/2024 Depression Screening 03/09/2026 03/09/2025, 03/09/2025, 02/08/2025 Hepatitis B Screening Completed 1993 , 1993, 1993 Procedures Procedure Name Priority Date/Time Associated Diagnosis Comments COMPREHENSIVE METABOLIC PANEL Routine 02/10/2025 9:33 AM CDT Hypertension, essential VITAMIN D 25 HYDROXY Routine 02/10/2025 9:33 AM CDT Vitamin D deficiency TSH Routine 02/10/2025 9:33 AM CDT Screening for thyroid disorder LIPID PANEL Routine 02/10/2025 9:33 AM CDT Screening for cholesterol level CBC WITH AUTO DIFFERENTIAL Routine 02/10/2025 9:33 AM CDT Bruising from Last 3 Months Results * (ABNORMAL) CBC with auto differential (02/10/2025 9:33 AM CDT) WBC 9.9 3.8 - 10.8 Thousand/u L [facility] RBC, POC 5.05 3.80 - 5.10 Million/uL [facility] Hgb 15.9(H) 11.7 - 15.5 g/dL [facility] Hct 47.8(H) 35.0 - 45.0 % [facility] MCV 94.7 80.0 - 100.0 fL [facility] MCH 31.5 27.0 - 33.0 pg [facility] MCHC 33.3 32.0 - 36.0 g/dL [facility] Comment: For adults, a slight decrease in the calculated MCHC value (in the range of 30 to 32 g/dL) is most likely not clinically significant; however, it should be interpreted with caution in correlation with other red cell parameters and the patient's clinical condition. Rdw 12.3 11.0 - 15.0 % [facility] Platelets 324 140 - 400 Thousand/u L [facility] MPV 9.0 7.5 - 12.5 fL [facility] Neutrophils, abs 5,306 1,500 - 7,800 cells/uL [facility] Lymphocytes, abs 3,742 850 - 3,900 cells/uL [facility] Monocyte abs 644 200 - 950 cells/uL [facility] Eosinophils, abs 139 15 - 500 cells/uL [facility] Basophils, abs 69 0 - 200 cells/uL [facility] Neutrophils 53.6 % [facility] Lymphocyte pct 37.8 % [facility] Monocytes 6.5 % [facility] Eosinophils 1.4 % [facility] Basophils 0.7 % [facility] Blood 02/10/2025 9:33 AM CDT 02/10/2025 9:34 AM CDT Narrative [facility] - 02/11/2025 3:05 AM CDT FASTING:YES FASTING: YES Violet Falk NP LAB BLOOD ORDERABLES Final Re sult [facility] [address] [place] [address] * (ABNORMAL) Vitamin D 25 hydroxy (02/10/2025 9:33 AM CDT) Pathologist [facility] Vitamin D 25-OH 24(L) 30 - 100 ng/mL [facility] Comment: Vitamin D Status 25-OH Vitamin D: Deficiency: <20 ng/mL Insufficiency: 20 - 29 ng/mL Optimal: > or = 30 ng/mL For 25-OH Vitamin D testing on patients on D2-supplementation and patients for whom quantitation of D2 and D3 fractions is required, the Quest[facility](TM) 25-OH VIT D, (D2,D3), LC/MS/MS is recommended: order code 41703 (patients >2yrs). See Note 1 Note 1 For additional information, please refer to http://education.Sensics/faq/ZCJ287 (This link is being provided for informational/ educational purposes only.) Blood 02/10/2025 9:33 AM CDT 02/10/2025 9:34 AM CDT Narrative [facility] - 02/11/2025 3:05 AM CDT FASTING:YES FASTING: YES Violet Falk NP LAB BLOOD ORDERABLES Final Re sult [facility] [address] [place] [address] * TSH (02/10/2025 9:33 AM CDT) [facility] TSH 1.23 mIU/L [facility] Comment: Reference Range > or = 20 Years 0.40-4.50 Ranges First trimester 0.26-2.66 Second trimester 0.55-2.73 Third trimester 0.43-2.91 Blood 02/10/2025 9:33 AM CDT 02/10/2025 9:34 AM CDT Narrative [facility] - 02/11/2025 3:05 AM CDT FASTING:YES FASTING: YES Violet M. Faires TRANSMISSION SPECIALIST LAB BLOOD ORDERABLES Final Re sult Performing Organization Address [facility] Co de Phone Number FREDRICK [facility] [address] [place] [address] * (ABNORMAL) Lipid panel (02/10/2025 9:33 AM CDT) Cholesterol 223(H) <200 mg/dL [facility] HDL 40(L) > OR = 50 mg/dL [facility] Triglycerides 181(H) <150 mg/dL [facility] LDL 151(H) mg/dL (calc) [facility] Comment: Reference range: <100 Desirable range <100 mg/dL for primary prevention; <70 mg/dL for patients with CHD or diabetic patients with > or = 2 CHD risk factors. LDL-C is now calculated using the Hudson calculation, which is a validated novel method providing better accuracy than the Friedewald equation in the estimation of LDL-C. Alessandro JUAREZ et al. KENDALL. 2013;310(19): 1037-5693 (http://education.Sensics/faq/VZO800) Chol/HDL ratio 5.6(H) <5.0 (calc) [facility] Non-HDL, (LDL+VLDL) 183(H) <130 mg/dL (calc) [facility] Comment: For patients with diabetes plus 1 major ASCVD risk factor, treating to a non-HDL-C goal of <100 mg/dL (LDL-C of <70 mg/dL) is considered a therapeutic option. Blood 02/10/2025 9:33 AM CDT 02/10/2025 9:34 AM CDT Narrative [facility] - 02/11/2025 3:05 AM CDT FASTING:YES FASTING: YES Violet Falk TRANSMISSION SPECIALIST LAB BLOOD ORDERABLES Final Re sult Performing Organization Address [facility] Co de Phone Number FREDRICK [facility] [address] [place] [address] * Comprehensive metabolic panel (02/10/2025 9:33 AM CDT) Glucose 92 65 - 99 mg/dL [employer] [facility] Comment: Fasting reference interval BUN 10 7 - 25 mg/dL [facility] Creatinine 0.63 0.50 - 0.97 mg/dL [facility] eGFR 121 > OR = 60 mL/min/1.7 3m2 [facility] BUN/creat ratio SEE NOTE: 6 - 22 (calc) [facility] Comment: Not Reported: BUN and Creatinine are within reference range. Sodium 135 135 - 146 mmol/L [facility] Potassium, pl 4.3 3.5 - 5.3 mmol/L [facility] Chloride 103 98 - 110 mmol/L [facility] CO2 25 20 - 32 mmol/L [facility] Calcium 9.3 8.6 - 10.2 mg/dL [facility] Protein, sr 6.3 6.1 - 8.1 g/dL [facility] Albumin 4.1 3.6 - 5.1 g/dL [facility] GLOBULIN 2.2 1.9 - 3.7 g/dL (calc) [facility] Alb/glob ratio 1.9 1.0 - 2.5 (calc) [facility] Bilirubin, total 0.6 0.2 - 1.2 mg/dL [facility] Alk phos 39 31 - 125 U/L [facility] AST 20 10 - 30 U/L [facility] ALT (SGPT) 28 6 - 29 U/L [facility] Blood 02/10/2025 9:33 AM CDT 02/10/2025 9:34 AM CDT Narrative [facility] - 02/11/2025 3:05 AM CDT FASTING:YES FASTING: YES Violet Falk NP LAB BLOOD ORDERABLES Final Re sult [facility] [address] [place] [address] from Last 3 Months Insurance [facility] [employer] Care Teams Stone Spreader Operator Relationship Specialty Start Date End Date Violet Falk NP [address] [facility] [address] [place] [address] PCP - General Internal Medicine 02/08/25
--- OUTSIDE RECORDS SUMMARY | 2025-04-25 13:13 | XMS_ITS | Clinical Summary ---
Author Organization [facility] [employer] Address [address] [place] [address] Care Team Providers Care Spanish Literature Professor Name Role Phone Unavailable Primary Care Provider Unavailabl e Source Comments [facility],non-owned Affiliates and Associated Physician Practices is amultiple site organization consisting of ambulatory clinics and hospital sitesin [place], [place], [place] and [place]. This disclosure is being madepursuant to the Care Everywhere program and may not contain all information available regarding this patient. Last updated 18.[facility] [employer] Allergies Active Allergy Reactions Criticality Noted Date Comments Penicillins 12/14/2009 Medications * Be aware that medications may not be up to date on this document. Alwaysverify current medications with the patient. ketoconazole (NIZORAL) 2 % shampoo Apply to affected area daily. Active minoxidil (MINOXIDIL FOR MEN) 5 % solution Apply to affected area daily. 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 Gender Identity Not on file Sexual Orientation Not on file Plan of Treatment Health Maintenance Due Date Last Done Comments HIV SCREENING 01/26/2008 HEPATITIS C SCREENING 01/21/2011 DTAP/TDAP/TD VACCINES (1 - Tdap) 01/26/2012 HEPATITIS B VACCINE (1 of 3 - 19+ 3-dose series) 01/26/2012 HPV VACCINE (1 - 3-dose SCDM series) 01/26/2020 COVID-19 VACCINE (2023-2 5 season) 2024 DEPRESSION SCREENING 09/07/2024 INFLUENZA VACCINE (#1) 2025 ZOSTER VACCINE (1 of 2) 2043 HIB VACCINE Aged Out No longer eligi ble based on patient's age to complete this topic MENINGOCOCCAL (Group B) VACC INE SHARED DECISION-MAKING Aged Out No longer eligibl e based on patient's age to complete this topic MENINGOCOCCAL GROUPS A/C/Y/W VACCINE Aged Out No longer eligible b ased on patient's age to complete this topic PNEUMOCOCCAL VACCINE Aged Out No long er eligible based on patient's age to complete this topic Insurance
[2025-04-25 13:31] LABS: Hematocrit 43.2 % (37.0-47.0); Hemoglobin 14.8 g/dL (12.0-15.0); Immature Granulocyte Percent A 1.5 % (0-0.5); Lymphocytes Absolute Auto 4.25 K/mm3 (0.9-3.2); Mean Corpuscular HGB Conc 34.3 g/dl (32-36); Mean Corpuscular Hemoglobin 31.3 pg (26-34); Mean Corpuscular Volume 91.3 fl (80-100); Nucleated Red Blood Cells Absolute Auto 0.000 K/mm3 (0.0-0.012); Nucleated Red Blood Cells Perc 0.0 % (0.0-0.2); Platelet Count Result 339 k/mm3 (150-375); Red Blood Count 4.73 M/mm3 (4.2-5.4); White Blood Count 12.0 K/mm3 (4.5-10.0)
[2025-04-25 13:53] VITALS: BP 133/81; PULSE 84; RESP 16; O2SAT 98
[2025-04-25 13:54] LABS: INR 1.0; Partial Thromboplastin Time 29.5 Seconds (22.3-36.8); Prothrombin Time 13.6 Seconds (11.1-14.7)
[2025-04-25 14:00] LABS: Alanine Aminotransferase 32 U/L (6-35); Albumin Level 4.3 g/dL (3.5-5.1); Alkaline Phosphatase 53 U/L (38-126); Anion Gap 8 mmol/L (4-12); Aspartate Amino Transferase 30 U/L (14-36); Bilirubin,Total 0.4 mg/dL (0.2-1.3); Blood Urea Nitrogen 6 mg/dL (7-17); Calcium 10.0 mg/dL (8.4-10.2); Carbon Dioxide 22 mmol/L (22-30); Chloride 105 mmol/L (98-107); Estimated CRCL calculation 139 ml/min; Estimated Glomerular Filt Rate > 60; Glucose 92 mg/dL (65-110); Lipase 63 U/L (23-300); Potassium 4.0 mmol/L (3.4-5.0); Sodium 135 mmol/L (137-145); Total Protein 7.4 g/dL (6.3-8.2)
[2025-04-25] MEDS: ASPIRIN 81 MG CHEWABLE TABLET 324 MG PO (14:00)
[2025-04-25 14:01] VITALS: BP 124/93; PULSE 86; PULSE 88; RESP 17; O2SAT 98
[2025-04-25 14:02] VITALS: O2SAT 98
[2025-04-25 14:07] LABS: Troponin I < 0.012 ng/mL (0.000-0.034)
--- OUTSIDE RECORDS SUMMARY | 2025-04-25 15:09 | XMS_ITS | Clinical Summary ---
Author Organization [facility] [employer] Address [address] [place] [address] Care Team Providers Care Wallcovering Texturer Name Role Phone Unavailable Primary Care Provider Unavailabl e Source Comments [facility],non-owned Affiliates and Associated Physician Practices is amultiple site organization consisting of ambulatory clinics and hospital sitesin [place], [place], [place] and [place]. This disclosure is being madepursuant to the Care Everywhere program and may not contain all information available regarding this patient. 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
--- OUTSIDE RECORDS SUMMARY | 2025-04-25 15:09 | XMS_ITS | Clinical Summary ---
Author Organization [facility] Address [address] [place] [address] Care Team Providers Care Senior Test Analyst Name Role Phone Brenda Strong RISK MANAGEMENT SPECIALIST Primary Care Provider [phone] Social History Tobacco Use Types Packs/Day Years [...] complete this topic Insurance [employer] Care Teams Senior Test Analyst Relationship Specialty Start Date End Date Brenda Strong FNP PCP - General NURSE PRACTITIONER 01/30/23
--- OUTSIDE RECORDS SUMMARY | 2025-04-25 15:09 | XMS_ITS | Clinical Summary ---
Author Organization [facility] [address] [facility] Address [address] [place] [address] Care Team Providers Care Import Manager Name Role Phone Viloet Falk NP Primary Care Provider [phone] Allergies Active Allergy Reactions Criticality Noted Date [...] Type Department Care Team Description 03/14/[address] [address] Violet Falk NP 03/09/2025 7:00 AM CDT Office Visit [address] [address] Violet Falk NP Vitamin D deficiency (Primary Dx); BMI 36.0-36.9,adult; Obesity (BMI 30-39.9); Mixed hyperlipidemia 02/20/[address] [address] Violet Falk NP 02/09/[address] [place] [phone] Violet Falk NP Additional Services Or Orders 02/08/2025 1:30 PM CDT Office Visit [address] [address] Violet Falk NP Hypertension, essential (Primary Dx); [...] on file 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 Gender Identity Not on file Sexual Orientation [...] ORDERABLES Final Re sult [facility] [address] [place] [address] * (ABNORMAL) Vitamin D 25 hydroxy (02/10/2025 9:33 AM CDT) Pathologist [facility] Vitamin D 25-OH 24(L) 30 - 100 ng/mL [facility] Comment: Vitamin D Status 25-OH Vitamin D: Deficiency: <20 ng/mL Insufficiency: 20 - 29 ng/mL Optimal: > or = 30 ng/mL For 25-OH Vitamin D testing on patients on D2-supplementation and patients for whom quantitation of D2 and D3 fractions is required, the [facility](TM) 25-OH VIT D, (D2,D3), LC/MS/MS is recommended: order code 90250 (patients >2yrs). See Note 1 Note 1 For additional information, please refer to http://education.SameDayPrinting.com/faq/PBQ215 (This link is being provided for informational/ educational purposes only.) Blood 02/10/2025 9:33 AM CDT 02/10/2025 9:34 AM CDT Narrative [facility] - 02/11/2025 3:05 AM CDT FASTING:YES FASTING: YES Violet Falk NP LAB BLOOD ORDERABLES Final Re sult [facility] [address] [place] [address] * TSH (02/10/2025 9:33 AM CDT) [facility] TSH 1.23 mIU/L [facility] Comment: Reference Range > or = 20 Years 0.40-4.50 Ranges First trimester 0.26-2.66 Second trimester 0.55-2.73 Third trimester 0.43-2.91 Blood 02/10/2025 9:33 AM CDT 02/10/2025 9:34 AM CDT Narrative [facility] - 02/11/2025 3:05 AM CDT FASTING:YES FASTING: YES Violet M. Faires POWER HOUSE CONTROL ROOM OPERATOR LAB BLOOD ORDERABLES Final Re sult Performing Organization Address [facility] Co de Phone Number FREDRICK [facility] [address] [place] [address] * (ABNORMAL) Lipid panel (02/10/2025 9:33 AM CDT) Cholesterol 223(H) <200 mg/dL [facility] HDL 40(L) > OR = 50 mg/dL [facility] Triglycerides 181(H) <150 mg/dL [facility] LDL 151(H) mg/dL (calc) [facility] Comment: Reference range: <100 Desirable range <100 mg/dL for primary prevention; <70 mg/dL for patients with CHD or diabetic patients with > or = 2 CHD risk factors. LDL-C is now calculated using the Hudson calculation, which is a validated novel method providing better accuracy than the Friedewald equation in the estimation of LDL-C. Alessandro JUAREZ et al. KENDALL. 2013;310(19): 8361-7625 (http://education.SameDayPrinting.com/faq/EET463) Chol/HDL ratio 5.6(H) <5.0 (calc) [facility] Non-HDL, (LDL+VLDL) 183(H) <130 mg/dL (calc) [facility] Comment: For patients with diabetes plus 1 major ASCVD risk factor, treating to a non-HDL-C goal of <100 mg/dL (LDL-C of <70 mg/dL) is considered a therapeutic option. Blood 02/10/2025 9:33 AM CDT 02/10/2025 9:34 AM CDT Narrative [facility] - 02/11/2025 3:05 AM CDT FASTING:YES FASTING: YES Violet Falk POWER HOUSE CONTROL ROOM OPERATOR LAB BLOOD ORDERABLES Final Re sult Performing Organization Address [facility] Co de Phone Number FREDRICK [facility] [address] [place] [address] * Comprehensive metabolic panel (02/10/2025 9:33 AM CDT) Glucose 92 65 - 99 mg/dL [facility] Comment: Fasting reference interval BUN [...] GLOBULIN 2.2 1.9 - 3.7 g/dL (calc) [facility] Alb/glob ratio 1.9 1.0 - 2.5 (calc) [facility] Bilirubin, total 0.6 0.2 - 1.2 mg/dL [facility] Alk phos 39 31 - 125 U/L [facility] AST 20 10 - 30 U/L [facility] ALT (SGPT) 28 6 - 29 U/L [facility] Blood 02/10/2025 9:33 AM CDT 02/10/2025 9:34 AM CDT Narrative [facility] - 02/11/2025 3:05 AM CDT FASTING:YES FASTING: YES Violet Falk NP LAB BLOOD ORDERABLES Final Re sult [facility] [address] [place] [address] from Last 3 Months Insurance [facility] [employer] Care Teams Import Manager Relationship Specialty Start Date End Date Violet Falk NP [address] [place] [address] PCP - General Internal Medicine 02/08/25
--- NOTE | 2025-04-25 19:13 | ED.CHESTPAIN ---
HPI - Chest Pain General Chief Complaint: Chest Pain Stated Complaint: chest tightness x days Time Seen by Provider: 04/25/25 13:55 History of Present Illness HPI narrative: Patient presenting here with chest tightness the last 1-2 days, now resolved. No cardiac disease. No family history of young MIs Related Data Home Medications ?Medication ?Instructions ?Recorded ?Confirmed ?Last Taken ?Type aripiprazole 10 mg tablet mg 01/09/25 03/29/25 Unknown History fluoxetine 20 mg tablet mg 01/09/25 03/29/25 Unknown History losartan 50 mg tablet mg 02/13/25 03/29/25 Unknown History drospirenone (contraceptive) 4 mg PO 03/29/25 03/29/25 Unknown History (28) tablet (Slynd) Allergies Allergy/AdvReac Type Severity Reaction Status Date / Time Penicillins Allergy Mild Swelling Verified 04/25/25 13:11 Review of Systems Review of Systems: All systems reviewed & are unremarkable except as noted in HPI and below PMFSH Past Medical History Medical History Migraine Depression Surgical History Surgical History No pertinent past surgical history Family History Family History (Updated 03/29/25 @ 15:30 by Idris Campos MA) Mother Heart disease Social History Social History (Updated 03/29/25 @ 15:30 by Idris Campos MA) Smoking status: Light tobacco smoker Tobacco type: cigarettes Alcohol intake: never Substance use: current Substance use type: marijuana Other substance usage details: thc gummies Do You Feel Safe in your Home?: Yes Lack of Transportation: No Lack of Food: Never True Current Housing: I Have Housing Concerned About Future Housing: No Difficulty Paying Gas/Electric Bills: No Difficulty Paying for Meds: No Currently Unemployed: No Education: High School Diploma/GED Difficulty w/ Childcare or Family Care: No Living arrangements: with family Occupation/Education: occupation Additional occupation/education comments: [employer] Gender identity (if verbalized by the patient): Female Exam Narrative: EXAMINATION OF ORGAN SYSTEMS/BODY AREAS: Constitutional: Vital signs per nursing GENERAL:[No acute distress, non-toxic appearing.] HEAD: Normal with no signs of head trauma. EYES: EOMI, conjunctiva normal ENT: Hearing grossly intact LUNGS: Nonlabored breathing. Clear to auscultation bilaterally HEART: [Regular rate and rhythm] ABD: [Soft], [nontender to palpation] EXT: Normal range of motion SKIN: [No rashes or lesions.] NEURO: [Alert and oriented x 3. No gross focal sensory or strength deficits.] PSYCH: Normal affect Course Vital Signs Vital signs: Vital Signs Temperature 97.7 F 04/25/25 13:09 Pulse Rate 82 04/25/25 13:09 Respiratory Rate 16 04/25/25 13:09 Blood Pressure 131/91 H 04/25/25 13:09 Pulse Oximetry 97 04/25/25 13:09 Oxygen Delivery Room Air 04/25/25 13:09 Temperature 97.7 F 04/25/25 13:09 Pulse Rate 86 04/25/25 14:01 Respiratory Rate 17 04/25/25 14:01 Blood Pressure 124/93 H 04/25/25 14:01 Pulse Oximetry 98 04/25/25 14:02 Oxygen Delivery Room Air 04/25/25 14:02 MDM - Chest Pain MDM Narrative Medical decision making narrative: ED COURSE AND MEDICAL DECISION MAKINF presenting with chest pain. EKG done in triage negative for acute ischemic changes. Cardiac workup is initiated. EKG: Performed in triage and interpreted by me. Normal sinus rhythm. Rate 92. Normal axis. OK normal. QRS duration normal. QTc normal. No pathologic Q waves. No ST segment elevation or depression to suggest acute ischemia. Some T-wave flattened or inverted inferior lateral leads HEART score is 1 with no acute ischemic changes on EKG and negative troponin making ACS unlikely. Wells low risk with negative PERC making PE unlikely. Presentation not consistent with dissection or aneurysm without radiation of pain or pulse deficits. CXR negative for mediastinal widening. No abdominal pain or signs of sepsis that would be concerning for esophageal perforation or mediastinitis. No cardiomegaly or JVD to suggest pericardial effusion/tamponade. She still has no symptoms currently. On repeat evaluation just prior to discharge, the patient is no acute distress. I had a long discussion with the patient and with shared decision making, she is comfortable with outpatient management. She was given clear return instructions by myself in person as well as on discharge paperwork. Lab Data 04/25/25 13:16 04/25/25 13:16 Labs: Lab Results 04/25/25 Range/Units 13:16 WBC 12.0 H (4.5-10.0) K/mm3 RBC 4.73 (4.2-5.4) M/mm3 Hgb 14.8 (12.0-15.0) g/dL Hct 43.2 (37.0-47.0) % MCV 91.3 (80-100) fl MCH 31.3 (26-34) pg MCHC 34.3 (32-36) g/dl RDW 12.4 (11.5-14.5) % Plt Count 339 (150-375) k/mm3 MPV 8.7 (7.4-10.4) fl Immature Gran % (Auto) 1.5 H (0-0.5) % Neut % (Auto) 56.1 (45.5-73.1) % Lymph % (Auto) 35.5 (18.3-44.2) % [place] % (Auto) 4.9 (2.6-8.5) % Eos % (Auto) 1.2 (0-4.4) % Baso % (Auto) 0.8 (0.2-1.2) % Lymph # (Auto) 4.25 H (0.9-3.2) K/mm3 [place] # (Auto) 0.6 (0.1-0.6) K/mm3 Eos # (Auto) 0.1 (0-0.3) K/mm3 Baso # (Auto) 0.1 (0.0-0.1) K/mm3 Abs Immat Gran (auto) 0.18 H (0.00-0.031) K/mm3 Absolute Neuts (auto) 6.7 (1.3-6.7) K/mm3 Absolute Nucleated RBC 0.000 (0.0-0.012) K/mm3 Nucleated RBC % 0.0 (0.0-0.2) % PT 13.6 (11.1-14.7) Seconds INR 1.0 APTT 29.5 (22.3-36.8) Seconds Sodium 135 L (137-145) mmol/L Potassium 4.0 (3.4-5.0) mmol/L Chloride 105 (98-107) mmol/L Carbon Dioxide 22 (22-30) mmol/L Anion Gap 8 (4-12) mmol/L BUN 6 L (7-17) mg/dL Creatinine 0.54 L (0.7-1.0) mg/dL Estim Creat Clear Calc 139 ml/min Estimated GFR > 60 (59 - ) Glucose 92 (65-110) mg/dL Calcium 10.0 (8.4-10.2) mg/dL Total Bilirubin 0.4 (0.2-1.3) mg/dL AST 30 (14-36) U/L ALT 32 (6-35) U/L Alkaline Phosphatase 53 (38-126) U/L Troponin I < 0.012 (0.000-0.034) ng/mL Total Protein 7.4 (6.3-8.2) g/dL Albumin 4.3 (3.5-5.1) g/dL Lipase 63 (23-300) U/L Discharge Plan Discharge Clinical Impression: Atypical chest pain Patient Disposition: Home Condition: Stable Instructions: Chest Pain (ED) Additional Instructions: Please follow up with your doctor; if your chest pain comes back, come back to the ER please. Patient Language: Icelandic Prescriptions: No Action fluoxetine 20 mg tablet aripiprazole 10 mg tablet losartan 50 mg tablet Slynd 4 mg (28) tablet PO spironolactone 50 mg tablet 50 mg PO DAILY Qty: 90 3RF Follow-up/Referrals: Deya,ISABELA Lazo [Primary Care Provider, Unknown] Stand Alone Forms: Work/School Release IP
== END 2025-04-25 14:56 | disposition home or self-care (01) ==
LOC: ANHED 14:42
PROVIDERS: Emergency Provider Emergency Medicine; PCP Nurse Practitioner Family
DX: R07.89 Other chest pain (principal); F32.A Depression, unspecified
CPT/HCPCS: 36415; 71046; 80053; 83690; 84484; 85025; 85610; 85730; 93005; 99284; A9270

== ENCOUNTER 2025-06-07 12:02 | Emergency (ER) | payer OTHER, SELFPAY ==
[2025-06-07 12:12] VITALS: BP 129/82; PULSE 86; RESP 16; TEMP 36.6; O2SAT 98
--- NOTE | 2025-06-07 12:38 | ED.SKABFB ---
HPI - Skin/Abscess/Foreign Bdy General Chief complaint: Skin/Abscess/Foreign Body Stated complaint: abdomen pain Time Seen by Provider: 06/07/25 12:04 Source: patient Mode of arrival: ambulatory Limitations: no limitations History of Present Illness HPI narrative: Patient is a 30-year-old female that presents with wound to lower abdomen. Patient had punch biopsy completed 05/20 and had sutures placed. Sutures were removed 05/31 and was placed on doxycycline at that time. Two days after sutures were removed patient and significant other reports it was open and no longer closed. States it has been very tender but has not had any drainage from area. Has not called Dermatology office Related Data Home Medications ?Medication ?Instructions ?Recorded ?Confirmed ?Last Taken ?Type aripiprazole 10 mg tablet mg 01/09/25 03/29/25 Unknown History fluoxetine 20 mg tablet mg 01/09/25 03/29/25 Unknown History losartan 50 mg tablet mg 02/13/25 03/29/25 Unknown History drospirenone (contraceptive) 4 mg PO 03/29/25 03/29/25 Unknown History (28) tablet (Slynd) atorvastatin 10 mg tablet mg 06/07/25 Unknown History ergocalciferol (vitamin D2) 1,250 06/07/25 Unknown History mcg (50,000 unit) capsule Allergies Allergy/AdvReac Type Severity Reaction Status Date / Time Penicillins Allergy Mild Swelling Verified 06/07/25 12:05 Review of Systems Review of Systems: All systems reviewed & are unremarkable except as noted in HPI and below Constitutional: Constitutional: Denies body ache(s), Denies chills, Denies fatigue, Denies fever(s), Denies headache(s), Denies malaise and Denies weakness Eyes: Eyes: Denies blurry vision, Denies irritation and Denies loss of vision ENT: Denies otalgia, Denies headache(s), Denies nasal discharge, Denies sinus pain and Denies sore throat Cardiovascular: Cardiovascular: Denies chest pain, Denies irregular heart rhythm and Denies dyspnea Respiratory: Respiratory: Denies dyspnea Gastrointestinal: Gastrointestinal: Denies abdominal pain, Denies melena, Denies hematochezia, Denies diarrhea, Denies nausea and Denies vomiting Musculoskeletal: Musculoskeletal: Denies back pain, Denies myalgias and Denies arthralgias Integumentary/Breasts: Skin/Breast: Denies pruritus, Denies rash and Reports wounds Neurologic: Denies headache(s), Denies loss of vision and Denies weakness Psychiatric: Psychiatric: Reports no additional psychiatric complaints Endocrine: Endocrine: Denies fatigue PMFSH Past Medical History Medical History Migraine Depression Surgical History Surgical History No pertinent past surgical history Family History Family History Mother Heart disease Social History Social History Smoking status: Light tobacco smoker Tobacco type: cigarettes Alcohol intake: never Substance use: current Substance use type: marijuana Other substance usage details: thc gummies Do You Feel Safe in your Home?: Yes Lack of Transportation: No Lack of Food: Never True Current Housing: I Have Housing Concerned About Future Housing: No Difficulty Paying Gas/Electric Bills: No Difficulty Paying for Meds: No Currently Unemployed: No Education: High School Diploma/GED Difficulty w/ Childcare or Family Care: No Living arrangements: with family Occupation/Education: occupation Additional occupation/education comments: [employer] Gender identity (if verbalized by the patient): Female Comments At time of signature, agree with nursing past medical, surgical, social and family history. There is no relevant family history pertinent to the presenting complaint. Exam Const: General: cooperative, healthy appearing, comfortable, no acute distress and well nourished Nutritional Appearance: well nourished Orientation/consciousness: patient oriented x3 Limitations: no limitations HENMT: Head: normal to inspection, normocephalic and atraumatic Ears: hearing grossly normal bilaterally and external ears normal Face/Nose/Sinus: Normal external nose present, normal facial exam and face symmetric Face and sinus: normal facial exam and face symmetric Mouth: Yes lip normal Eyes: General: appearance normal, both eyes and all related structures Alignment and Position: alignment normal and position normal Periorbital: periorbital findings normal Eyelids: eyelids normal Pupils: Equal, round and reactive pupils present EOM: EOMs intact bilaterally Neck: Neck: normal visual inspection, full ROM and supple Chest: Chest palpation & inspection: normal inspection of the chest Resp: Effort & Inspection: normal respiratory effort and able to speak in complete sentences Auscultation: clear to auscultation bilaterally Cardio: Rate: regular rate Rhythm: regular rhythm Heart sounds: S1 normal heart sound present and S2 normal heart sound present GI: Inspection: normal to inspection Skin: General skin exam: normal color and no rashes or lesions noted Full body images:  1. 1.5x2 cm area of open superficial wound with granulating tissue present. Wound borders are well defined in a levelock. Mild surrounding erythema and no induration or active drainage. Area is in skin fold Neuro: General: patient oriented x3 and moves all extremities Cranial nerves: Yes Equal, round and reactive pupils present Speech: normal speech Gait exam (Neuro): Normal gait present Extrem: General: normal to inspection, full ROM and no edema Psych: Appearance: grossly normal and well kempt Mental Status: mental status grossly normal Speech and movement: Normal speech and movement present Affect: normal affect Attitude: cooperative Thought process: Normal thought process present Course Course Emergency Course: Patient is aware of diagnosis, understands and agrees to treatment plan. Anticipatory guidance given. Patient agrees to follow-up as directed and is aware of reasons to seek care at the emergency department. Portions of this record may have been created with voice recognition software Level of Care: Express Care Visit Vital Signs Vital signs: Vital Signs Temperature 36.6 C 06/07/25 12:12 Pulse Rate 86 06/07/25 12:12 Respiratory Rate 16 06/07/25 12:12 Blood Pressure 129/82 06/07/25 12:12 Pulse Oximetry 98 06/07/25 12:12 Oxygen Delivery Room Air 06/07/25 12:12 Temperature 36.6 C 06/07/25 12:12 Pulse Rate 86 06/07/25 12:12 Respiratory Rate 16 06/07/25 12:12 Blood Pressure 129/82 06/07/25 12:12 Pulse Oximetry 98 06/07/25 12:12 Oxygen Delivery Room Air 06/07/25 12:12 Reviewed MDM - Skin/Abscess/Foreign Bdy MDM Narrative Medical decision making narrative: Placing patient on another antibiotic course along with antifungal medication due to location. Patient instructed to follow-up with detail drafter. Pt well hydrated appearing, in no respiratory distress, hemodynamically stable. Recommend supportive care. The patient is stable at time of discharge the clinical impression was discussed and the patient was given the opportunity to ask questions, which were addressed as completely as possible given the information available at present. Anticipatory guidance and return to care precautions were discussed and the importance of primary care follow-up was stressed and encouraged. The patient voiced understanding of the plan, indications to return, and the need for follow-up. Exam findings show no acute concerns or changes Patient is appropriate for outpatient treatment and follow-up. Differential Diagnosis Differential diagnosis: Likely abscess of skin or subcutaneous tissue, cellulitis and other (Infected wound) Medical Records Attestation: I reviewed the patient's medical records. Discharge Plan Discharge Clinical Impression: Wound dehiscence, Infected wound Patient Disposition: Home Condition: Stable Instructions: Wound Dehiscence (ED) Additional Instructions: Apply home Bactroban during the day and keep covered. Take antibiotics as prescribed. Call Dermatology office and let them know you have wound dehiscence Go to the emergency department if you have worsening redness, swelling or pus. Patient Language: Malay Prescriptions: New clindamycin HCl 300 mg capsule 300 mg PO Q8H 10 Days Qty: 30 0RF fluconazole 150 mg tablet 150 mg PO WEEKLY Qty: 2 0RF No Action fluoxetine 20 mg tablet aripiprazole 10 mg tablet losartan 50 mg tablet atorvastatin 10 mg tablet ergocalciferol (vitamin D2) 1,250 mcg (50,000 unit) capsule Slynd 4 mg (28) tablet PO spironolactone 50 mg tablet 50 mg PO DAILY Qty: 90 3RF Follow-up/Referrals: Deya,ISABELA Lazo [Primary Care Provider, Unknown] - 3 Days Stand Alone Forms: Work/School Release IP Time of Disposition: 12:56
== END 2025-06-07 13:00 | disposition home or self-care (01) ==
PROVIDERS: Emergency Provider Nurse Practitioner Family; PCP Nurse Practitioner Family
DX: T81.31XA Disruption of external operation (surgical) wound, not elsewhere classified, initial encounter (principal); T81.41XA Infection following a procedure, superficial incisional surgical site, initial encounter; F17.210 Nicotine dependence, cigarettes, uncomplicated; F12.90 Cannabis use, unspecified, uncomplicated; F32.A Depression, unspecified
CPT/HCPCS: 87070; 87075; 87077; 87186; 87205; 99213; G0463